=== PATIENT | female | born 1975 | race African-American/Black ===

== ENCOUNTER 2016-07-09 12:44 | Emergency (ER) | payer OTHER, MEDICARE, MEDICAID ==
[~2016-07-09] VITALS: Ht 160 cm; Wt 69.1 kg
[~2016-07-09 12:44] MED LIST: CEPHALEXIN500 M1 PO; DILANTIN 100MG100 MG PO; NORCO 325 MG-51 TAB PO; PERCOCET 325 MG1 TA2 PO
[2016-07-09 12:45] VITALS: TEMP 98.3
[2016-07-09 13:54] LABS: BASO % 0.5 % (0.0-2.0); EOS # 0.1 (0.0-0.7); EOS % 1.7 % (0-4.0); GRAN # 2.8 (1.4-6.5); GRAN % 48.1 % (42.2-75.2); LYMPH # 2.4 (1.2-3.4); LYMPH % 41.1 % (20.0-51.0); MEAN CELL VOLUME 80 fl (80.0-100.0); MEAN CORPUSCULAR HGB CONC 32 g/dl (33.0-37.0); MEAN PLATELET VOLUME 10.6 fl (7.4-10.4); MONO # 0.5 (0.1-0.6); MONO % 8.3 % (1.7-9.3); PLATELET COUNT 336 K/mm3 (130-400); RED BLOOD COUNT 4.27 M/mm3 (4.10-5.30); REDCELL DISTRIBUTION WIDTH-CV 14.6 % (11.5-14.5); WHITE BLOOD COUNT 5.8 K/mm3 (4.8-10.8)
[2016-07-09 13:57] LABS: HEMOGLOBIN 10.9 g/dl (12.5-16.0); MEAN CORPUSCULAR HEMOGLOBIN 26 pg (27.0-31.0)
[2016-07-09 14:04] LABS: ADJUSTED CALCIUM 9.4 mg/dL (8.4-10.2); BILIRUBIN,TOTAL 0.6 mg/dL (0.0-1.0); CALCIUM 9.4 mg/dL (8.4-10.2); CREATININE, serum 0.64 mg/dL (0.52-1.25); POTASSIUM 3.9 mmol/L (3.4-5.0); TOTAL PROTEIN 7.6 gm/dL (6.4-8.2)
[2016-07-09] MEDS ORDERED: NORCO 325 MG-51 TAB PO (15:47)
[2016-07-09 16:31] LABS: PH 6 (5-8); URINE APPEARANCE Hazy; URINE BACTERIA Rare /hpf; URINE BILIRUBIN Negative (NEGATIVE); URINE BLOOD Negative (NEGATIVE); URINE COLOR Yellow; URINE GLUCOSE Negative (NEGATIVE); URINE KETONE Negative (NEGATIVE); URINE UROBILINOGEN Negative (NEGATIVE)
[2016-07-09 17:11] VITALS: BP 112/71; PULSE 90
== END 2016-07-09 17:13 | disposition home or self-care (01) ==
LOC: COL.ER 12:44
PROVIDERS: Family Medicine
DX: O02.0 Blighted ovum and nonhydatidiform mole (principal); O03.4 Incomplete spontaneous abortion without complication; D25.9 Leiomyoma of uterus, unspecified; K42.9 Umbilical hernia without obstruction or gangrene; G40.909 Epilepsy, unspecified, not intractable, without status epilepticus; Z3A.01 Less than 8 weeks gestation of pregnancy
CPT/HCPCS: J1170; J1885; J2405; J7030

== ENCOUNTER → 2019-12-28 | Outpatient (CLI) | payer OTHER, MEDICARE ==
[~2019-12-28] MED LIST changes: +FLAGYL500 MG PO
== END ==
LOC: ZCOL.LAB 15:48
DX: Z20.828 Contact with and (suspected) exposure to other viral communicable diseases (principal)

== ENCOUNTER → 2020-03-06 | Outpatient (CLI) | payer OTHER, MEDICARE | LOC: COL.RAD 11:36 | DX: R22.42 Localized swelling, mass and lump, left lower limb (principal) ==

== ENCOUNTER → 2020-03-27 | Outpatient (CLI) | payer OTHER, MEDICARE | LOC: COL.RAD 08:55 | DX: D17.24 Benign lipomatous neoplasm of skin and subcutaneous tissue of left leg (principal); M62.89 Other specified disorders of muscle | CPT/HCPCS: A9585 ==

== ENCOUNTER 2021-06-04 12:57 | Outpatient (RCR) | payer OTHER, MEDICARE ==
[~2021-06-04] VITALS: Ht 162.6 cm; Wt 76.1 kg
[2021-06-04 14:15] VITALS: BP 143/82; PULSE 67; TEMP 97.8
== END 2021-06-10 ==
LOC: EUO
DX: Z79.899 Other long term (current) drug therapy (principal)
CPT/HCPCS: J1756

== ENCOUNTER 2021-06-18 13:00 | Outpatient (RCR) | payer OTHER, MEDICARE ==
[2021-06-11 09:50] VITALS: BP 139/78; PULSE 84; TEMP 98.5
[~2021-06-18] VITALS: Ht 162.6 cm; Wt 76.1 kg
[2021-06-18 13:30] VITALS: BP 131/84; PULSE 81; TEMP 97.7
== END 2021-06-18 13:46 ==
LOC: EUO 13:00
DX: Z79.899 Other long term (current) drug therapy (principal)
CPT/HCPCS: J1756

== ENCOUNTER 2021-10-28 08:42 | Emergency (ER) | payer OTHER, MEDICARE ==
[~2021-10-28] VITALS: Ht 162.6 cm; Wt 75.0 kg
[2021-10-28 08:54] VITALS: BP 108/72; TEMP 97.5
[2021-10-28] MEDS ORDERED: FLEXERIL 1010 MG/TAB PO (10:55)
[2021-10-28 11:17] VITALS: PULSE 77
== END 2021-10-28 11:17 | disposition home or self-care (01) ==
LOC: COL.ER 08:42
DX: S09.90XA Unspecified injury of head, initial encounter (principal); M25.511 Pain in right shoulder; W01.198A Fall on same level from slipping, tripping and stumbling with subsequent striking against other object, initial encounter; Y92.22 Religious institution as the place of occurrence of the external cause

== ENCOUNTER 2023-05-01 05:48 | Day surgery (SDC) | payer OTHER, MEDICARE ==
[~2023-05-01] VITALS: Ht 162.6 cm; Wt 65.6 kg
[~2023-05-01 05:48] MED LIST changes: +FLEXERIL 1010 MG/TAB PO; +LIDODERM 5% PATC1 EA TP; +LR 1,000 ML IV SCH; +TORADOL 10MG TA10 MG PO
[2023-05-01 06:09] VITALS: BP 117/75; PULSE 92; TEMP 97.1
[2023-05-01] MEDS ORDERED: IBU800 M1 PO (06:14)
--- NOTE | 2023-05-01 06:29 | NUR ---
The patient ambulated back to [place] [facility] independently using a steady gait and appeared to tolerate the activity well. Vital signs obtained. Consent signed. Home medications reconcilled. Assessment completed. 20G IV started in left hand with one stick, LR infusing without difficulty. Warm blankets provided. brought back to be at her bedside. Call light is within reach. The patient denies any further needs at this time.
[2023-05-01] MEDS ORDERED: Ketorolac 30 MG/ML VIAL ONE (07:03)
[2023-05-01] MEDS ORDERED: dexAMETHasone 10 MG/ML VIAL ONE (07:03)
[2023-05-01] MEDS ORDERED: Ondansetron 4 MG/2 ML VIAL ONE (07:03)
[2023-05-01] MEDS ORDERED: NS 10 ML IV ONE (07:03)
[2023-05-01] MEDS ORDERED: Lidocaine PF 2% (20 MG/ML) 5 ML VIAL ONE (07:03)
[2023-05-01] MEDS ORDERED: fentaNYL 50 MCG/ML 2 ML VIAL ONE (08:00)
[2023-05-01] MEDS ORDERED: Lidocaine PF 2% (20 MG/ML) 5 ML VIAL SQ ONE (08:07)
[2023-05-01 08:41] VITALS: BP 107/65; PULSE 80; TEMP 97.4
--- NOTE | 2023-05-01 08:41 | NUR ---
The patient arrived back to [facility] from the operating room at this time. The patient appears alert and denies any pain or nausea at this time. The patient's medipore dressing to her left lower extremity appears clean, dry and intact. Post operative vital signs were started at this time. The patient's is at her bedside. The patient agrees to try some ice chips. Call light is within reach. The patient denies any futher needs at this time.
[2023-05-01] MEDS ORDERED: Morphine 4 MG/ML VIAL IV PRN (08:45)
[2023-05-01] MEDS ORDERED: Ondansetron 4 MG/2 ML VIAL IV PRN (08:45)
[2023-05-01] MEDS ORDERED: NORCO 325 MG-51 TAB PO (08:47)
[2023-05-01 08:56] VITALS: BP 100/61; PULSE 77
--- NOTE | 2023-05-01 08:56 | NUR ---
The patient appears to be tolerating the ice chips well and agrees to try some grape juice. Vital signs appear stable. remains at bedside.
[2023-05-01 09:11] VITALS: BP 115/60; PULSE 78
[2023-05-01 09:26] VITALS: BP 113/67; PULSE 68
--- NOTE | 2023-05-01 09:49 | NUR ---
The patient reports some discomfort in her left lower extremity at the incision site and was given a PRN dose of [place] to help.
--- NOTE | 2023-05-01 09:50 | NUR ---
Discharge instructions were reviewed with the patient and her at this time. They both verbalized understanding and have no questions for the nurse at this time. The patient's IV to her left hand was removed and a pressure dressing was applied to the site. The nurse instructed the patient to get dressed and notify the staff when she is ready to be escorted out.
--- NOTE | 2023-05-01 10:15 | NUR ---
The patient was escorted out via wheelchair to a private vehicle by RONIT Crespo. The patient's belongings and discharge paperwork were sent with her. The patient's is present to drive her home.
== END 2023-05-01 10:15 | disposition home or self-care (01) ==
LOC: SDCO 05:48
DX: D17.24 Benign lipomatous neoplasm of skin and subcutaneous tissue of left leg (principal)
CPT/HCPCS: J0690; J1100; J1885; J2405; J2704; J3010; J7120

== ENCOUNTER 2023-06-22 12:08 | Emergency (ER) | payer OTHER, MEDICARE ==
[~2023-06-22] VITALS: Ht 162.6 cm; Wt 68.6 kg
[~2023-06-22 12:08] MED LIST changes: +IBU800 M1 PO; -LR 1,000 ML IV SCH
[2023-06-22 12:14] VITALS: TEMP 98.9
[2023-06-22] MEDS ORDERED: Morphine 4 MG/ML VIAL IV PRN (12:45)
[2023-06-22] MEDS ORDERED: NS 1,000 ML IV ONE (12:45)
[2023-06-22 13:08] LABS: BASO % 0.4 % (0.0-2.0); EOS # 0.1 K/mm3 (0.0-0.7); EOS % 1.4 % (0.0-4.0); GRAN # 4.8 K/mm3 (1.4-6.5); GRAN % 66.7 % (42.2-75.2); LYMPH # 1.6 K/mm3 (1.2-3.4); LYMPH % 22.5 % (20.0-51.0); MEAN CELL VOLUME 79 fl (80.0-100.0); MEAN CORPUSCULAR HGB CONC 32 g/dl (33.0-37.0); MEAN PLATELET VOLUME 10.6 fl (7.4-10.4); MONO # 0.6 K/mm3 (0.1-0.6); MONO % 8.7 % (1.7-9.3); PLATELET COUNT 343 K/mm3 (130-400); RED BLOOD COUNT 3.97 M/mm3 (4.10-5.30); REDCELL DISTRIBUTION WIDTH-CV 19.7 % (11.5-14.5)
[2023-06-22 13:10] LABS: HEMATOCRIT 31.3 % (37.0-47.0); HEMOGLOBIN 9.9 g/dl (12.5-16.0); MEAN CORPUSCULAR HEMOGLOBIN 25 pg (27-31)
[2023-06-22 13:28] LABS: ALANINE AMINOTRANSFERASE 10 U/L (0-55); ALBUMIN 3.3 gm/dL (3.5-5.0); ALKALINE PHOSPHATASE 57 U/L (40-150); ANION GAP 9 mmol/L (7-16); AST,SGOT 21 U/L (5-34); BLOOD UREA NITROGEN 10 mg/dL (7-19); CALCIUM 9.1 mg/dL (8.4-10.2); CARBON DIOXIDE 25 mmol/L (22-29); CHLORIDE 105 mmol/L (98-107); GLUCOSE 99 mg/dL (70-99); SODIUM 139 mmol/L (136-145); TOTAL PROTEIN 6.3 gm/dL (6.2-8.1)
[2023-06-22 13:36] LABS: TROPONIN-I < 0.010 ng/mL (0.00-0.033)
[2023-06-22 13:46] LABS: BILIRUBIN,TOTAL 0.2 mg/dL (0.2-1.2)
[2023-06-22] MEDS ORDERED: Iohexol 300 - 100 ML VIAL IV ONE (15:18)
[2023-06-22] MEDS ORDERED: NS 100 ML IV SCH (15:19)
[2023-06-22] MEDS ORDERED: Methylnaltrexone 12 MG/0.6 ML VIAL SQ ONE ×2 (16:15)
[2023-06-22 17:25] VITALS: BP 136/78; PULSE 97
== END 2023-06-22 17:25 | disposition home or self-care (01) ==
LOC: COL.ER 12:08
PROVIDERS: Personal Emergency Response Attendant
DX: R06.00 Dyspnea, unspecified (principal); R10.30 Lower abdominal pain, unspecified; R07.9 Chest pain, unspecified
CPT/HCPCS: J2212; J2270; J7030; Q9967

== ENCOUNTER 2023-07-21 01:33 | Emergency (ER) | payer OTHER, MEDICARE ==
[~2023-07-21] VITALS: Ht 162.6 cm; Wt 65.9 kg
[~2023-07-21 01:33] MED LIST changes: +CEFTIN500 MG PO
[2023-07-21 01:51] VITALS: TEMP 98.1
[2023-07-21 03:32] LABS: BASO % 0.4 % (0.0-2.0); EOS % 0.1 % (0.0-4.0); GRAN # 6.2 K/mm3 (1.4-6.5); GRAN % 80.9 % (42.2-75.2); HEMOGLOBIN 10.7 g/dl (12.5-16.0); LYMPH # 0.9 K/mm3 (1.2-3.4); LYMPH % 11.9 % (20.0-51.0); MEAN CELL VOLUME 80 fl (80.0-100.0); MEAN CORPUSCULAR HEMOGLOBIN 26 pg (27-31); MEAN CORPUSCULAR HGB CONC 32 g/dl (33.0-37.0); MEAN PLATELET VOLUME 10.4 fl (7.4-10.4); MONO # 0.5 K/mm3 (0.1-0.6); MONO % 6.4 % (1.7-9.3); PLATELET COUNT 303 K/mm3 (130-400); RED BLOOD COUNT 4.14 M/mm3 (4.10-5.30); REDCELL DISTRIBUTION WIDTH-CV 16.6 % (11.5-14.5)
[2023-07-21 03:47] LABS: ALBUMIN 3.7 g/dL (3.5-5.0); BILIRUBIN,TOTAL 0.3 mg/dL (0.2-1.2); CALCIUM 9.6 mg/dL (8.4-10.2); CREATININE, serum 0.8 mg/dL (0.57-1.11); POTASSIUM 3.8 mEq/L (3.5-4.5); TOTAL PROTEIN 7.3 g/dl (6.2-8.1)
[2023-07-21 04:07] LABS: PROLACTIN 15.6 ng/mL (5.18-26.53)
[2023-07-21 05:12] VITALS: BP 122/76
[2023-07-21] MEDS ORDERED: KEPPRA 500MG500 MG PO (05:38)
[2023-07-21] MEDS ORDERED: levETIRAcetam 500 MG TAB PO ONE (05:45)
[2023-07-21 05:46] VITALS: PULSE 104
== END 2023-07-21 05:47 | disposition home or self-care (01) ==
LOC: COL.ER 01:33
PROVIDERS: Personal Emergency Response Attendant
DX: R56.9 Unspecified convulsions (principal)

== ENCOUNTER 2023-07-23 10:03 | Observation (INO) | payer OTHER, MEDICARE ==
[~2023-07-23] VITALS: Ht 162.6 cm; Wt 64.7 kg
[~2023-07-23 10:03] MED LIST changes: +KEPPRA 500MG500 MG PO
[2023-07-23] MEDS ORDERED: NS 1,000 ML IV ONE (10:45)
[2023-07-23] MEDS ORDERED: droPERidol 2.5 MG/ML 2 ML VIAL IV ONE (10:45)
[2023-07-23] MEDS ORDERED: diphenhydrAMINE 50 MG/ML 1 ML VIAL IV ONE (10:45)
[2023-07-23 12:20] LABS: BASO % 0.2 % (0.0-2.0); GRAN # 9.2 K/mm3 (1.4-6.5); GRAN % 86.2 % (42.2-75.2); HEMOGLOBIN 11.2 g/dl (12.5-16.0); LYMPH # 0.8 K/mm3 (1.2-3.4); LYMPH % 7.9 % (20.0-51.0); MEAN CELL VOLUME 80 fl (80.0-100.0); MEAN CORPUSCULAR HEMOGLOBIN 26 pg (27-31); MEAN CORPUSCULAR HGB CONC 32 g/dl (33.0-37.0); MEAN PLATELET VOLUME 10.9 fl (7.4-10.4); MONO # 0.5 K/mm3 (0.1-0.6); PLATELET COUNT 348 K/mm3 (130-400); RED BLOOD COUNT 4.36 M/mm3 (4.10-5.30); REDCELL DISTRIBUTION WIDTH-CV 16.1 % (11.5-14.5)
[2023-07-23 12:23] LABS: HEMATOCRIT 34.8 % (37.0-47.0)
[2023-07-23 12:28] LABS: ALBUMIN 3.9 g/dL (3.5-5.0); BILIRUBIN,TOTAL 0.4 mg/dL (0.2-1.2); CALCIUM 9.5 mg/dL (8.4-10.2); CREATININE, serum 0.7 mg/dL (0.57-1.11); POTASSIUM 3.7 mEq/L (3.5-4.5); TOTAL PROTEIN 7.5 g/dl (6.2-8.1)
[2023-07-23] MEDS ORDERED: LORazepam 2 MG/ML 1 ML VIAL IV ONE ×2 (13:00→13:15)
[2023-07-23] MEDS ORDERED: Ondansetron 4 MG/2 ML VIAL IV PRN (14:30)
--- NOTE | 2023-07-23 15:30 | NUR ---
PT ON THE FLOOR VIA STRETCHER AND AMBULATED TO BED 1 ASSIST, PT SWAYING TO LEFT SIDE WHEN AMBULATING. PT ORIENTED TO ROOM, CALL LIGHT AND BED ALARM. ASSESSMENT DONE, PT UNABLE TO RECALL ACCURATE MED HISTORY AND NAME THE 2 SURGERIES SHE HAD THIS YEAR. PT SLOW TO RESPOND WHEN ANSWERING IN TAKE QUESTIONS. FALL RISK ITEMS PLACED ON. BED IN LOWEST POSITION, CALL LIGHT IN REACH, BED ALARM ON, SEIZURE PRECUATIONS IN PLACE
[2023-07-23 15:51] VITALS: BP 153/96; PULSE 89; TEMP 98.6
[2023-07-23] MEDS ORDERED: levETIRAcetam 100 ML IV SCH (16:00)
--- NOTE | 2023-07-23 16:27 | NUR ---
LAB UNABLE TO DRAW LABS WITH 2 ATTEMPTS. THIS NURSE AT BEDSIDE AND DEBRA 3MLS FROM LEFT HAND ON 2ND ATTEMPT. PT DENIES NEEDS. BED IN LOWEST POSITION, CALL LIGHT IN REACH, BED ALARM ON
[2023-07-23] MEDS ORDERED: *Potassium Replacement Protocol MC SCH (16:30)
[2023-07-23] MEDS ORDERED: Potassium Bicarbonate/Citrate 20 MEQ Effervescent TAB PO SCH (16:30)
[2023-07-23 17:00] VITALS: BP_SYST 153
[2023-07-23] MEDS ORDERED: CEFTIN500 MG PO (17:55)
[2023-07-23] MEDS ORDERED: ZOFRAN ODT4 MG PO (17:59)
[2023-07-23] MEDS ORDERED: TYLENOL 500MG500 MG PO (18:05)
--- NOTE | 2023-07-23 19:25 | NUR ---
REPORT GIVEN TO RONIT ALMANZAR
[2023-07-23] MEDS ORDERED: LORazepam 0.5 MG TAB PO PRN (19:30)
[2023-07-23 19:37] VITALS: BP 126/66; PULSE 132; TEMP 98.9
[2023-07-23 20:00] VITALS: BP_SYST 126
[2023-07-23 22:43] VITALS: BP 150/92; PULSE 105; TEMP 99.1
[2023-07-24] VITALS (7 sets, daily range): BP systolic 122–150; BP diastolic 75–79; PULSE 102–120; TEMP 97.9–98.7
--- NOTE | 2023-07-24 05:30 | NUR ---
ASSESSMENT COMPLETE FOR [facility]. PT DENIED GENERAL PAIN, CHEST PAIN, SOB, N,V,D OR DIZZINESS. PT WAS TACHY THROUGHOUT THE SHIFT, AT TIMES CAUSING MEWS OF 3 & 4. HOSPITALIST NOTIFIED. WILL CONTINUE TO MONITOR. TELEHEALTH TECH INFORMED ME THAT PT HAD A SEIZURE DURING HER TELEHEALTH NEURO CONSULT, WITNESSED BY NEUROLOGIST. NO NEW ORDERS GIVEN PER TELEHEALTH TECH. HOSPITALIST NOTIFIED. PT'S NEURO CHECKS WERE STABLE THROUGHOUT SHIFT. CALL LIGHT WITHIN REACH.
[2023-07-24 06:36] LABS: BASO % 0.2 % (0.0-2.0); EOS % 0.2 % (0.0-4.0); GRAN # 7.3 K/mm3 (1.4-6.5); GRAN % 70.4 % (42.2-75.2); HEMATOCRIT 32.7 % (37.0-47.0); HEMOGLOBIN 10.6 g/dl (12.5-16.0); LYMPH # 1.9 K/mm3 (1.2-3.4); LYMPH % 18.5 % (20.0-51.0); MEAN CELL VOLUME 79 fl (80.0-100.0); MEAN CORPUSCULAR HEMOGLOBIN 26 pg (27-31); MEAN CORPUSCULAR HGB CONC 32 g/dl (33.0-37.0); MEAN PLATELET VOLUME 11.4 fl (7.4-10.4); MONO # 1.1 K/mm3 (0.1-0.6); MONO % 10.3 % (1.7-9.3); PLATELET COUNT 327 K/mm3 (130-400); RED BLOOD COUNT 4.14 M/mm3 (4.10-5.30)
[2023-07-24 06:47] LABS: CALCIUM 9.2 mg/dL (8.4-10.2); CREATININE, serum 0.73 mg/dL (0.57-1.11); POTASSIUM 3.5 mEq/L (3.5-4.5)
--- NOTE | 2023-07-24 08:30 | NUR ---
PT LAYING IN BED UPON ENTERING, SEIZURE PRECAUTIONS IN PLACE. ASSESSMENT DONE, PT DENIES PAIN. PT ORIENTED TO PERSON PLACE AND TIME WITH SLOW AND CONFUSING CONVERSATIONAL SPEECH NOTED. PT TELLING THIS NURSE ABOUT CERTAIN PERSONAL EVENTS THAT THIS NURSE WASNT INVOLVED IN AND ASKS "DONT YOU REMEMBER THAT?". PT SPEAKING ABOUT ISSUES RELATING TO HOSPITAL STAY AND THEN MENTIONING HER PROFESSSION WITHOUT COMPLETING FIRST STATEMENT SHE WAS MAKING. INT TO LEFT AC PATENT. DRIED BLOOD NOTED TO SITE AND PT UPSET ABOUT THIS STATING "THIS IS EQUIVALENT TO LEAVING A DIRTY DIAPER ON A BABY". PT EDUCATED THAT INTS TO THE AC CAN BE EASILY IRRITATED WITH MOVEMENT. SITE CLEANED AND NEW TEGADERM APPLIED. PT DENIES NEEDS. BED IN LOWEST POSITION, CALL LIGHT IN REACH, BED ALARM ON
--- NOTE | 2023-07-24 10:12 | NUR ---
Initial visit: "Gladis" and Inspector Crystal had a good visit about her health issues which she believes are brought on from the stress of her over-busy life and so much responsibility. Inspector Crystal spoke with her about treating herself better, talking her thoughts "out" with someone and taking care of herself. Inspector Crystal let "Me" know she is here to help however she can and will keep her in Inspector Crystal's prayers.
[2023-07-24] MEDS ORDERED: Gadoterate 15 ML VIAL IV ONE (10:30)
--- NOTE | 2023-07-24 11:12 | NUR ---
Social work student met with patient to discuss discharge planning. Patient appeared slightly confused. Patient lives in [place] and sees for primary care. Patient obtains her medications from [facility] and stated she sometimes has difficulties affording them. Social work student informed patient on [facility] and will bring patient a card. Patient accepted. Patient's best point of contact is her Valdemar (Ph#:[phone]) who patient stated is also her DPOA-HC. Patient uses a walker and stated she was independent with ADLS prior to being admitted into the hospital. Patient is able to transport herself to and from appointments and stated her only concern is feeling better. Social work student informed patient about home health services and told patient to call social work number if she wants it. Patient plans to return home at time of discharge. Discharge plan: Home
--- NOTE | 2023-07-24 11:43 | NUR ---
PT BACK IN ROOM FROM MRI, FAMILY AT BEDSIDE
[2023-07-24] MEDS ORDERED: Potassium Bicarbonate/Citrate 20 MEQ Effervescent TAB PO SCH (12:30)
--- NOTE | 2023-07-24 13:51 | NUR ---
LONNIE receieved a call from Clerk Connor informing LONNIE that pt would like a list of mental health therapists. LONNIE provided this to Geeta. Discharge Plan: home
--- NOTE | 2023-07-24 14:00 | NUR ---
IV REMOVED AND PT DRESSED IN PERSONAL PANTS. FAMILY AT BEDSIDE AND NOTIFIED THIS NURSE THAT PTS BRA, SHIRT AND 1 EARRING MISSING. DURING MRI SCREEN THIS MORNING PT AND THIS RN NOTICED THAT SHE HAD ONE EARRING IN FOR THE FIRST TIME. WHEN PT WAS ADMITTED 07/22 BY THIS NURSE PT WAS IN A HOSPITAL GOWN WITH NO PERSONAL CLOTHING FROM THE WAIST UP. AT ADMISSION PT HAD PERSONAL PANTS, SOCKS AND SHOES ON. DECLINES TAKING ANY OF THOSE ITEMS HOME. ED CALLED AND CANT FIND PTS BELONINGS AT THIS TIME
--- NOTE | 2023-07-24 14:47 | NUR ---
LONNIE received a call from RN Aubree that pt needs a top. SW provided a shirt and tank top to patient. Discharge Plan: home
--- NOTE | 2023-07-24 15:00 | NUR ---
ED CALLED THAT THEY FOUND PTS CLOTHES. CALLED AND TOLD THIS NURSE THAT THEYLL BE BACK FOR THEM PTS SON ON THE FLOOR AND GIVEN PERSONAL CLOTHES
== END 2023-07-24 14:00 | disposition home or self-care (01) ==
LOC: COL.ER 10:03 → MEDICAL 14:11 → COL.ER 14:11 → MEDICAL 15:01
PROVIDERS: Nurse Practitioner Family; Physician Assistant; ADMIT Internal Medicine
DX: R56.9 Unspecified convulsions (principal); R42 Dizziness and giddiness; E87.6 Hypokalemia; D64.9 Anemia, unspecified; F41.9 Anxiety disorder, unspecified
CPT/HCPCS: A9575; G0378; J1200; J1790; J2060; J7030; Q3014